=== PATIENT | male | born 1975 ===

== ENCOUNTER 2019-01-07 21:12 | Inpatient (IN) | payer MEDICAID ==
[2019-01-07 21:13] VITALS: BMI 25.1
[2019-01-07 21:18] VITALS: O2SAT 97
--- NOTE | 2019-01-07 21:21 | ED PDOC ---
Psych Transfer Clearance - Clearance Statement Clearance Statement: Reviewed vital signs, lab results and transfer papers. Patient clinically stable for psychiatric admission.
[2019-01-07] MEDS ORDERED: Magnesium Hydroxide Susp 30 ml UD PO PRN (21:45)
[2019-01-07] MEDS ORDERED: DiphenhydrAMINE 50 mg/ml Inj IM PRN (21:45)
--- NOTE | 2019-01-07 22:40 | PCM.BM ---
<Farideh Moody Ambreen - Last Filed: 01/07/19 22:38> Treatment Plan Problems - Problems identified on initial assessmt Suicidal Ideation Date Initiated: 01/07/19 Time Initiated: 22:38 Assessment reference: NA Status: Active Treatment assets and liabiliti Patient Assests: cooperative, ADL independent, physically healthy, negotiates basic needs, cognitively intact Patient Liabilities: financial problems, substance abuse, legal issue - Milieu Protocol Maintain good personal hygiene: daily Encourage regular showers, every shift Remind patient to perform daily oral care Conduct patient checks and document Observation sheet: Q15 minutes Maintain personal safety: every shift Educate patient to report safety concerns to staff, every shift Monitor environment for contraband/sharps Medication safety: Monitor for expected outcome, potential side effects: every shift, Assess barriers to learning: every shift, Assess readiness for medication education: every shift <Tiffany Evans - Last Filed: 01/10/19 11:36> - Diagnosis (1) Opiate abuse, continuous Status: Acute Interventions: 01/10/19 11:36 referral to [facility], motivational therapy <Ambika Gaston - Last Filed: 01/10/19 15:05> Treatment assets and liabiliti Patient Assests: adapts well, cooperative, educated (Pt. reports partial high school education. ), resourceful, self-reliant, good support system (Pt. identifies mother and sister in-law as only supports at this time. ), negotiates basic needs, cognitively intact Patient Liabilities: live alone (Pt. reported being homeless at time of admission. Pt. 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 Pt. reported difficulties maintaining employment secondary to substance abuse. ), relationship conflicts (. Pt. reports minimal communication with ex- and 3 children.), substance abuse (Pt. reports heroin abuse x3 years, using up to 50 bags/daily. Pt. reports hx of cocaine and marijuana abuse. Pt. positive for PCP upon admission to [facility] in 12/2017, as per chart. ), legal issue (Pt. reports hx of arrests for possession and stealing. Pt. reports having to serve time in January 2019 for recent arrests for possession. Pt. declined to elaborate on outstanding legal issues.) Family Contact Family involvement: Family/SO is involved Family contact: Family has been contacted by patient, Patient declines to allow family contact at present - Goals for Treatment Patient goals for treatment: Patient to continue stabilization on 3NP through medication management and group/supportive therapy to address sxs of depression, eliminate sxs of withdrawal and suicidal ideations. Patient to be encouraged to attend groups regularly to promote self-awareness, sobriety, and improve insight, compliance, coping skills and self-esteem. Patient to be provided with referral for appropriate level of aftercare to reduce risk of future hospitalizations and ensure safety in the community. Discharge/Continuing Care - Education Needs Education Needs: Patient Medication, Patient Diagnosis/Disease Process, Patient Coping Skills, Patient Community resources, Patient Aftercare Safety Plan - Discharge Discharge Criteria: Tolerates medication w/o severe side effects, Free of Suicidal thoughts, Free of agitation, Normal sleep pattern, No longer exhibiting s/s of withdrawal Discharge to:: Home, With Family, Substance Abuse Rehab (Pt. refused inpatient rehab referrals.) - Treatment Team Participation Patient/Family/SO Statement: 01/10/19 15:05 Pt. attended tx team this morning to discuss progress on 3NP and tx goals. Pt. reported elimination of withdrawal sxs since 01/09 and expressed being grateful for tx provided by 3 staff. Pt. less irritable and brighter than upon admission. Pt. visible on 3NP and observed socializing appropriately with select peers and staff. Pt. was better able to engage in discussion with tx team and elaborate on collateral information provided at admission. Pt. reported growing up in a drug family explaining being made to sell illicit substances to help provide for his family since age 15. Pt. reported beginning to abuse heroin (nasal) 3 years ago after moving family to [place] while remaining employed in [place]. Pt. reported that the commute and inability to stay awake at work led pt. to begin abusing heroin. Pt. reported multiple long periods of sobriety. Pt. explained having initiated several inpatient rehab stays but leaving programs prior to completion. Pt. explained that drug use led to his divorce and strained relationship with his children. Pt. identified children (24, 21, 16, 13) as protective factors. Pt. reported only using heroin intravenously for past 2 weeks and was adamant about never doing so again, explaining My friends looked at me different when they found out. Pt. reported hx of 5 accidental overdoses. Pt. presented as discharge focused and declined to rescind 48 hour notice, expressing need to find employment to pay debts. Pt. reported having lots of friends who can easily find pt. stable employment and being able to stay with his brother in [place]. Tx team provided extensive psychoeducation regarding benefits of completing withdrawal protocol, proper stabilization, and appropriate aftercare referrals. Risks of relapse, re-hospitalization, overdose, and emphasized. Pt. expressed understanding but remained persistent about being discharged today. Pt. denied SI/HI and was able to contract for safety. Pt. superficially motivated for tx and sobriety. Security Advisor encouraged pt. to continue stabilization so that referrals to outpatient mental health/substance abuse services can be completed. Pt. declined. Benefits of being connected to a methadone/suboxone maintenance programs discussed. Pt. reported hx with [facility] and reported waning to connect them independently. AMA discharge explained in detail. Pt. expressed being disappointed he would be discharged without prescriptions but stated he will go to his PCP to request necessary medications. Pt. declined to provide law writer with consent to contact family. Discussed with Family/SO: No Was Patient/Family/SO present at Treatment Team Meeting: Yes
[2019-01-08] MEDS: Alum-Mag Hydrox-Simethicone Susp (30 mL) PO PRN ×3 (03:37→21:00)
[2019-01-08] MEDS: Multivitamin With Minerals Tab PO SCH (09:00)
--- NOTE | 2019-01-08 11:18 | PCM.PSYCH ---
Initial Psychiatric Evaluation - Initial Psychiatric Evaluation Chief Complaint (in patient's own words): I am tired of my life History of Present Illness and Precipitating Events: pt is 43 years old male transferred from [facility] after presenting to ER with suicidal ideation with plan to shoot himself with a gun pt has been discharged from detox about ten days ago, relapsed on heroin cocaine and cannabis, pt has been increasingly depressed in the context of being homeless having no social support with poor realtion with children on the unit continues to report passive suicidal ideation without active plan, denied perceptual disturbances, denied homicidal ideation Current Medications: Active Medications Generic Name Dose Route Start Last Admin Trade Name Freq PRN Reason Stop Dose Admin Al Hydrox/Mg Hydrox/Simethicone 30 ml 01/07/19 21:45 01/08/19 03:37 Maalox Plus 30 Ml PO 30 ml Q4 PRN Administration Dyspepsia Clonidine HCl 0.1 mg 01/07/19 22:00 01/08/19 03:39 Catapres PO 01/10/19 22:01 0.1 mg Q6 URIEL Administration Cyclobenzaprine HCl 5 mg 01/07/19 22:00 01/08/19 03:38 Flexeril PO 01/10/19 22:01 5 mg TID PRN Administration Muscle spasm Diphenhydramine HCl 50 mg 01/07/19 21:45 Benadryl IM Q6 PRN Extrapyramidal S/S Unable PO Diphenhydramine HCl 50 mg 01/07/19 21:45 01/08/19 03:37 Benadryl PO 50 mg Q6 PRN Administration Extrapyramidal Symptoms Gabapentin 100 mg 01/08/19 09:00 Neurontin PO TID URIEL Haloperidol 5 mg 01/07/19 21:45 Haldol PO Q4 PRN Agitation Haloperidol Lactate 5 mg 01/07/19 21:45 Haldol IM Q4 PRN Agitation, Unable to Take PO Ibuprofen 600 mg 01/07/19 21:55 Motrin Tab PO 01/10/19 21:56 Q6 PRN Pain, severe (8-10) Loperamide HCl 2 mg 01/07/19 21:55 Imodium PO 01/09/19 21:56 Q6 PRN Loose Bowel Movement Lorazepam 2 mg 01/07/19 21:45 Ativan IM Q4 PRN Anxiety/Agitation,Unable PO Lorazepam 1 mg 01/07/19 21:45 Ativan PO Q8 PRN Anxiety/Agitation Magnesium Hydroxide 30 ml 01/07/19 21:45 Milk Of Magnesia PO HS PRN Constipation Multivitamins/Minerals 1 tab 01/08/19 09:00 Therapeutic-M Tab PO DAILY URIEL Sertraline HCl 25 mg 01/09/19 09:00 Zoloft PO DAILY URIEL Trazodone HCl 100 mg 01/07/19 22:00 01/08/19 03:42 Desyrel PO Not Given HS URIEL Past Psychiatric History - Past Psychiatric History Explanation of prior treatment: multiple addmissions, hx of non compliance History of ETOH/Drug Use: cocaine heroin and cannabis Pertinent Medical Hx (Current Medical&Sleep Prob, Allergies): Allergies Allergy/AdvReac Type Severity Reaction Status Date / Time No Known Allergies Allergy Verified 01/07/19 14:23 No Known Home Med 07/10/17 Mental Status Examination - Personal Presentation Personal Presentation: Looks older than stated age - Affect Affect: Constricted, Depressed - Motor Activity Motor Activity: Psychomotor Retardation - Reliability in Providing Information Reliability in Providing Information: Poor, due to altered mood - Speech Speech: Relevant - Mood Mood: Depressed, Anxious - Formal Thought Process Formal Thought Process: Paranoia, Circumstantial - Cognitive Functions Orientation: Person, Place, Situation Sensorium: Alert Attention/Concentration: Easily distracted Abstract Thinking: [place] Judgement: Imparied, as evidence by: Poor judgement, Imparied, as evidence by: Lack of insight into illness Memory: Recent intact, as evidence by: Ability to recall events of the day - Risk Risk: Suicidal, Seizure, Withdrawal, Diminished functioning - Strength & Assets Inventory Strength & Assets Inventory: Life experience - Limitations Additional comments: homeless DSM 5 DX - DSM 5 DSM 5 Diagnosis: 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
--- NOTE | 2019-01-08 12:01 | CP.PCM.CON ---
History of Present Illness - History of Present Illness History of Present Illness: 43 yo male with history of polysubstance abuse admitted to psyche unit because of suicidal ideation. Review of Systems - Review of Systems All systems: reviewed and no additional remarkable complaints except (aside from those mentioned above, 12 point system review were negative by me) Past Patient History - Infectious Disease Hx of Infectious Diseases: None - Past Medical History & Family History Past Medical History?: No - Past Social History Smoking Status: Heavy Smoker > 10 Cigarettes Daily Chewing Tobacco Use: No Cigar Use: No Alcohol: None Drugs: Cocaine, Opiates, Prescription medications (Xanax) - CARDIAC Hx Cardiac Disorders: No Hx Hypertension: No - PULMONARY Hx Tuberculosis: No - NEUROLOGICAL HX Cerebrovascular Accident: No Hx Seizures: No - HEENT Hx HEENT Problems: No - RENAL Hx Chronic Kidney Disease: No - ENDOCRINE/METABOLIC Hx Endocrine Disorders: No - HEMATOLOGICAL/ONCOLOGICAL Hx Cancer: No Hx Human Immunodeficiency Virus (HIV): No - INTEGUMENTARY Hx Dermatological Problems: No - MUSCULOSKELETAL/RHEUMATOLOGICAL Hx Falls: No - GASTROINTESTINAL Hx Gastrointestinal Disorders: Yes - GENITOURINARY/GYNECOLOGICAL Hx Sexually Transmitted Disorders: No - PSYCHIATRIC Hx Substance Use: Yes (heroin, cocaine, marijuana) - SURGICAL HISTORY Hx Surgeries: Yes Other/Comment: gastric sx - ANESTHESIA Hx Anesthesia: Yes Hx Anesthesia Reactions: No Hx Malignant Hyperthermia: No Meds Allergies/Adverse Reactions: Allergies Allergy/AdvReac Type Severity Reaction Status Date / Time No Known Allergies Allergy Verified 01/07/19 14:23 - Medications Medications: Current Medications Al Hydrox/Mg Hydrox/Simethicone (Maalox Plus 30 Ml) 30 ml PO Q4 PRN PRN Reason: Dyspepsia Last Admin: 01/08/19 03:37 Dose: 30 ml Clonidine HCl (Catapres) 0.1 mg PO Q6 URIEL Stop: 01/10/19 22:01 Last Admin: 01/08/19 03:39 Dose: 0.1 mg Cyclobenzaprine HCl (Flexeril) 5 mg PO TID PRN PRN Reason: Muscle spasm Stop: 01/10/19 22:01 Last Admin: 01/08/19 03:38 Dose: 5 mg Diphenhydramine HCl (Benadryl) 50 mg IM Q6 PRN PRN Reason: Extrapyramidal S/S Unable PO Diphenhydramine HCl (Benadryl) 50 mg PO Q6 PRN PRN Reason: Extrapyramidal Symptoms Last Admin: 01/08/19 03:37 Dose: 50 mg Gabapentin (Neurontin) 100 mg PO TID URIEL Haloperidol (Haldol) 5 mg PO Q4 PRN PRN Reason: Agitation Haloperidol Lactate (Haldol) 5 mg IM Q4 PRN PRN Reason: Agitation, Unable to Take PO Ibuprofen (Motrin Tab) 600 mg PO Q6 PRN PRN Reason: Pain, severe (8-10) Stop: 01/10/19 21:56 Loperamide HCl (Imodium) 2 mg PO Q6 PRN PRN Reason: Loose Bowel Movement Stop: 01/09/19 21:56 Lorazepam (Ativan) 2 mg IM Q4 PRN PRN Reason: Anxiety/Agitation,Unable PO Lorazepam (Ativan) 1 mg PO Q8 PRN PRN Reason: Anxiety/Agitation Magnesium Hydroxide (Milk Of Magnesia) 30 ml PO HS PRN PRN Reason: Constipation Multivitamins/Minerals (Therapeutic-M Tab) 1 tab PO DAILY [facility] Sertraline HCl (Zoloft) 25 mg PO DAILY URIEL Trazodone HCl (Desyrel) 100 mg PO HS URIEL Last Admin: 01/08/19 03:42 Dose: Not Given Physical Exam - Constitutional Appears: No Acute Distress - Head Exam Head Exam: ATRAUMATIC - Eye Exam Eye Exam: absent: Scleral icterus - ENT Exam ENT Exam: Mucous Membranes Moist - Neck Exam Neck exam: Negative for: Meningismus - Respiratory Exam Respiratory Exam: absent: Rales, Rhonchi, Wheezes, Respiratory Distress - Cardiovascular Exam Cardiovascular Exam: REGULAR RHYTHM, +S1, +S2 - GI/Abdominal Exam GI & Abdominal Exam: Soft. absent: Tenderness - Rectal Exam Rectal Exam: Deferred - Extremities Exam Extremities exam: Negative for: pedal edema - Back Exam Back exam: NORMAL INSPECTION - Neurological Exam Neurological exam: Alert, Oriented x3 - Psychiatric Exam Psychiatric exam: Normal Affect - Skin Skin Exam: Diaphoretic Results - Vital Signs Recent Vital Signs: Last Vital Signs Temp 98.5 F 01/08/19 09:00 Pulse 76 01/08/19 09:00 Resp 18 01/08/19 09:00 BP 110/75 01/08/19 09:00 Pulse Ox 97 01/07/19 21:16 - Labs Labs: Laboratory Results - last 24 hr 01/08/19 07:45 Triglycerides 109 Cholesterol 153 LDL Cholesterol Direct 89 HDL Cholesterol 32 Thyroxine (T4) 4.57 L TSH 3rd Generation 0.04 L Assessment & Plan (1) Polysubstance abuse Status: Acute Comment: psyche is managing (2) Suicidal ideation Status: Acute Comment: psyche is managing
[2019-01-09] MEDS: Alum-Mag Hydrox-Simethicone Susp (30 mL) PO PRN ×4 (01:21→19:51)
[2019-01-09] MEDS ORDERED: Trimethobenzamide 200 mg/2 mL Inj IM ONE (01:41)
[2019-01-09] MEDS: Multivitamin With Minerals Tab PO SCH (08:47)
[2019-01-09] MEDS: Pantoprazole 40 mg EC Tab PO SCH (13:51)
[2019-01-09 14:44] LABS: HEMOGLOBIN 12.8 g/dL (12.0-18.0); MEAN CELL VOLUME 84.3 fl (80.0-94.0); MEAN CORPUSCULAR HEMOGLOBIN 27.8 pg (27.0-31.0); RBC 4.6 Mil/uL (4.40-5.90); RED CELL DISTRIBUTION WIDTH 17.4 % (11.5-14.5); WHITE BLOOD COUNT 9.5 K/uL (4.8-10.8)
[2019-01-09 14:56] LABS: ALB/GLOB RATIO 1.2 (1.0-2.1); ALBUMIN 4.2 g/dL (3.5-5.0); ALT/SGPT 16 U/L (21-72); AST/SGOT 22 U/L (17-59); BLOOD UREA NITROGEN 21 mg/dl (9-20); CALCIUM 9.3 mg/dL (8.4-10.2); GFR NON-AFRICAN AMERICAN > 60
--- NOTE | 2019-01-09 18:13 | PCM.PYCHPN ---
Psychiatric Progress Note - Psychiatric Progress Note Patient seen today, length of contact: chart reviewed case discussed with team pt seen Patient Chief Complaint: reported stays in room some what, reports at times feels anxious/etoh w/d. reports rx adherent. pt irritable at times. medicine has been made aware of pt's complaints of abdominal pain and laboratory examinations were ordered by medicine. pt receiving etoh protocol. Problems Identified/Issues Discussed: alteration in mood alteration in coping alteration in self care Medical Problems: per chart Diagnostic Results: per psychiatry per medicine per nursing per secondary social studies teacher per recreational therapy DSM 5 Symptoms Update: some improvement mood s/s w/d etoh receiving protocol Medication Change: Yes Medical Record Reviewed: Yes Consults ordered or reviewed: pt being followed by medical team Mental Status Examination - Cognitive Function Orientation: Person, Place, Situation Attention: WNL Concentration: WNL Association: WNL Fund of Knowledge: [facility] Decription of patient's judgement and insights: impaired - Mood Mood: Depressed, Anxious - Affect Affect: Constricted, Depressed - Formal Thought Process Formal Thought Process: Paranoia, Circumstantial - Suicidal Ideation Suicidal Ideation: No - Homicidal Ideation Homicidal Ideation: No Goal/Treatment Plan - Goal/Treatment Plan Progress Toward Problem(s) and Goals/Treatment Plan: inpt milieu adjust meds per clinical status team to readjust medications per clinical status discharge planning in progress Estimated Date of D/C: 01/15/19 - Smoking Cessation Smoking Cessation Initiated: Yes
[2019-01-10 09:01] VITALS: PULSE 94; RESP 20; TEMP 98
[2019-01-10] MEDS: Multivitamin With Minerals Tab PO SCH (10:21)
[2019-01-10] MEDS: Pantoprazole 40 mg EC Tab PO SCH (10:22)
[2019-01-10 10:24] VITALS: BP 91/67
--- NOTE | 2019-01-10 12:08 | PCM.PYCHDC ---
Mental Status Examination - Mental Status Examination Orientation: Person, Place, Situation Mood: Neutral Affect: Constricted Speech: Appropriate Attention: WNL Concentration: WNL Association: WNL Fund of Knowledge: WNL Formal Thought Process: No Impairment Description of patient's judgement and insight: poor insight and judgment Psychotic Thoughts and Behaviors: pt denied psychotic symptoms, non elicited Suicidal Ideation: No Current Homicidal Ideation?: No Discharge Summary - Discharge Note Reason for Hospitalization: pt is 43 years old male transferred from [facility] after presenting to ER with suicidal ideation with plan to shoot himself with a gun pt has been discharged from detox about ten days ago, relapsed on heroin cocain e and cannabis, pt has been increasingly depressed in the context of being homeless having no social support with poor realtion with children on the unit continues to report passive suicidal ideation without active plan, denied perceptual disturbances, denied homicidal ideation Laboratory Data: Abnormal Lab Results 01/09/19 01/09/19 14:30 14:30 WBC 9.5 RBC 4.60 Hgb 12.8 Hct 38.8 MCV 84.3 MCH 27.8 MCHC 33.0 RDW 17.4 H Plt Count 435 H Sodium 139 Potassium 4.3 Chloride 98 Carbon Dioxide 30 Anion Gap 15 BUN 21 H Creatinine 0.7 L Est GFR ( Amer) > 60 Est GFR (Non-Af Amer) > 60 Random Glucose 101 Calcium 9.3 Phosphorus 3.7 Magnesium 2.6 H Total Bilirubin 0.3 AST 22 ALT 16 L Alkaline Phosphatase 90 Total Protein 7.5 Albumin 4.2 Globulin 3.3 Albumin/Globulin Ratio 1.2 Consultations:: List each consultation separately and include: 1. Reason for request. 2. Findings. 3. Follow-up Summary of Hospital Course include:: 1. Description of specific treatment plan utilized for patients during their course of treatmen. 2. Summarize the time- course for resolution of acute symptoms and/or regressed behaviors. 3. Describe issues identified and worked on during hospitalization. 4. Describe medication utilized. 5. Describe medical problems identified and treated. 6. Reassessment of suicide risk Summary of Hospital Course: pt ion admission was started on clonidine and monitored for symptoms and signs of opiate withdrawal, pt was also started on zoloft and neurontin pt on second day of admission signed 48 hour notice requesting discharge, pt was educated about risk of relapse and possible overdose , pt was also advised to continue treatment for referral to methadone program, pt declined , he did not meet criteria for involuntary admisssion pt was discharged against medical advise on discharge pt denied any current suicidal or homicidal ideation denied perceptual disturbances - Diagnosis (1) Opiate abuse, continuous Current Visit: Yes Status: Acute - Final Diagnosis (DSM 5) Condition upon Discharge: FAIR DSM 5: 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
== END 2019-01-10 15:32 | disposition left against medical advice (07) | DRG 743 ==
LOC: H.ER 21:12 → H.PSYCH 21:19
PROVIDERS: ADMIT Psychiatry & Neurology Psychiatry; ATTEND Psychiatry & Neurology Psychiatry
PROC: GZ51ZZZ Individual Psychotherapy, Behavioral (ICD-10-PCS; 2019-01-07)
PROC: GZHZZZZ Group Psychotherapy (ICD-10-PCS; principal; 2019-01-09)
DX: F11.24 Opioid dependence with opioid-induced mood disorder (principal); F32.89 Other specified depressive episodes; F14.10 Cocaine abuse, uncomplicated; F12.10 Cannabis abuse, uncomplicated; R45.851 Suicidal ideations; Z59.0 Homelessness; F17.210 Nicotine dependence, cigarettes, uncomplicated; Z91.19 Patient's noncompliance with other medical treatment and regimen